=== PATIENT | female | born 1945 | race Caucasian/White ===

== ENCOUNTER 2020-01-26 10:45 | Outpatient (CLI) | payer MEDICARE, OTHER, SELFPAY ==
--- NOTE | ~2020-01-26 | US_ITS ---
EXAMINATION: US thyroid EXAM DATE: 01/26/2020 12:28 INDICATION: Hyperthyroidism. TECHNIQUE: Multiple grayscale and Doppler images of the thyroid were obtained (by a technologist who performed the scan) and subsequently reviewed. Individual nodules and recommendations may be reporte d in accordance with TI-RADS system as designated by the 2017 ACR White Paper TI-RADS committee. Comp arison is made to prior examination from 10/04/2016, 06/17/2012. FINDINGS: Multinodular goiter, with the right thyroid lobe measuring 5.4 x 2.0 x 1.6 cm, the left measuring 3.3 x 1.1 x 1.2 cm. The 2 largest nodules are in the right thyroid lobe. These both have spongiform masoud earance with echogenic foci along the deep sides of innumerable small cystic spaces, characteristic o f colloid cysts, TI RADS category TR 1. They measure 1.4 x 1.7 x 0.9 cm and 2.1 x 1.1 x 1.7 cm. These dimensions are not significantly changed compared to 2016 or 2011. IMPRESSION: Multinodular goiter unchanged. Reviewed, dictated and finalized at location A.
== END 2020-01-26 10:46 | disposition home or self-care (01) ==
LOC: CHSIMG 10:51
PROVIDERS: PCP Internal Medicine; Visit Provider Internal Medicine
DX: E05.90 Thyrotoxicosis, unspecified without thyrotoxic crisis or storm (principal)
CPT/HCPCS: 76536

== ENCOUNTER 2020-12-28 09:08 | Outpatient (CLI) | payer MEDICARE, OTHER, SELFPAY ==
--- NOTE | ~2020-12-28 | XR_ITS ---
EXAMINATION: XR lumbar spine 2-3V DATE: 12/28/2020 09:35 INDICATION: Low back pain. TECHNIQUE: 3 views of lumbar spine were obtained. COMPARISON: None. FINDINGS: There is a transitional segment at lumbosacral junction that is designated S1. There is 3 m m anterolisthesis of L4 on L5. Vertebral body heights are normal. There are changes of posterior fusi on procedure at L4-L5 with pedicle screws. There is mildly decreased disc height at L1-L2, L2-L3, L3- L4, and L4-L5 and severely decreased disc height at L5-S1 with endplate remodeling. There is multilev el severe facet joint osteoarthritis. IMPRESSION: 1. Severe lumbar spondylosis. 2. Posterior fusion procedure at L4-L5. Reviewed, dictated and finalized at location B.
[2020-12-28 09:25] LABS: Basophils Absolute Auto 0.04 K/mm3 (0.00-0.10); Basophils Percent Auto 0.5 % (0.0-1.0); Eosinophils Percent Auto 1.2 % (1.0-6.0); Hematocrit 41.5 % (35.0-42.0); Hemoglobin 14.4 g/dL (11.7-13.8); Immature Granulocyte Absolute 0.03 K/mm3 (0.00-0.00); Immature Granulocyte Percent A 0.4 % (0.0-0.0); Lymphocytes Absolute Auto 2.31 K/mm3 (1.10-4.50); Lymphocytes Percent Auto 27.8 % (18.0-42.0); Mean Corpuscular HGB Conc 34.7 g/dL (32.0-36.0); Mean Corpuscular Hemoglobin 31.3 pg (27.0-31.0); Mean Corpuscular Volume 90.2 fL (78.0-102.0); Mean Platelet Volume 9.2 fl (9.2-11.8); Monocytes Absolute Auto 0.56 K/mm3 (0.10-0.90); Monocytes Percent Auto 6.7 % (2.0-11.0); Neutrophils Absolute Auto 5.3 K/mm3 (1.7-7.2); Neutrophils Percent Auto 63.4 % (50.0-70.0); Platelet Count Result 346 K/mm3 (150-420); Red Cell Distribution Width 13.5 % (11.6-14.4); White Blood Count 8.3 K/mm3 (4.8-10.8)
[2020-12-28 09:26] LABS: Appearance Urine Clear (Clear); Bilirubin Urine Negative (Negative); Color Urine Yellow (Yellow); Glucose Urine UA Negative (Negative); Ketones Urine Negative (Negative); Leukocyte Esterase Ur 1+ (Negative); Nitrate Urine Negative (Negative); Protein Urine Negative (Negative); Specific Grav Ur <= 1.005 (1.010-1.020); Urobilinogen Urine 0.2 mg/dL (0.2-1.0)
[2020-12-28 09:30] LABS: Add Urine Microscopic? YES; Bacteria Urine Trace /hpf; Blood Urine Trace-Intact (Negative); RBC Urine None seen /hpf (0-2); Squamous Epithelial Cell Urine Few /hpf (Few); WBC Urine 0-3 /hpf (0-3)
[2020-12-28 10:35] LABS: Alanine Aminotransferase 28 U/L (14-59); Albumin Level 4.1 g/dL (3.4-5.0); Alkaline Phosphatase 109 U/L (46-116); Anion Gap 10 mmol/L (8-16); Aspartate Amino Transferase 17 U/L (15-37); Bilirubin,Total 1.4 mg/dL (0.00-1.00); Blood Urea Nitrogen 15 mg/dL (7-18); Calcium 9.1 mg/dL (8.5-10.1); Carbon Dioxide 28 mmol/L (21-32); Chloride 101 mmol/L (98-108); Estimated Glomerular Filt Rate > 60; Free T3 2.48 pg/mL (2.18-3.98); Free T4 Free Thyroxine 0.76 ng/dL (0.76-1.46); Glucose 99 mg/dL (70-99); Magnesium 2.3 mg/dL (1.8-2.4); Osmolality Calculated 288 mOsm/kg (285-295); Phosphorus 3.4 mg/dL (2.6-4.7); Sodium 139 mmol/L (136-145); Total Protein 7.7 g/dL (6.4-8.2)
[2020-12-28 11:16] LABS: CRP < 0.5 mg/dL (0.0-0.9)
== END 2020-12-28 09:09 | disposition home or self-care (01) ==
LOC: CHSLAB 09:12
PROVIDERS: PCP Internal Medicine; Visit Provider Internal Medicine
DX: R53.83 Other fatigue (principal); R10.9 Unspecified abdominal pain; M54.9 Dorsalgia, unspecified
CPT/HCPCS: 36415; 72100; 80053; 81001; 83735; 84100; 84439; 84443; 84481; 85025; 86140

== ENCOUNTER 2020-12-29 10:20 | Outpatient (CLI) | payer MEDICARE, OTHER, SELFPAY ==
--- NOTE | ~2020-12-29 | CT_ITS ---
EXAMINATION: CT abdomen pelvis wo con DATE: 12/29/2020 10:47 INDICATION: Hematuria. Left flank pain. Left upper quadrant pain. Hematuria. TECHNIQUE: Computed tomography (CT) of the abdomen and pelvis was performed without intravenous contr ast. Automated exposure control and iterative reconstruction technique were employed. Exam dose: 197 .36 mGy-cm total exam DLP. COMPARISON: 05/02/2011 CT abdomen pelvis examination is not available for comparison FINDINGS: Lower lobe calcified pulmonary edema. Minimal atelectasis at the lung bases. Normal heart size. No pericardial or pleural effusion. 1.6 cm lateral segment left hepatic cyst. Approximately 5 cm upper pole left renal cyst. 3.6 cm upper pole left renal cyst. Otherwise the liver, spleen, pancreas, and adrenal glands and kidneys are unremarkable. There are multiple gallstones. No gallbladder distention, gallbladder wall thickening or pericholecys tic fluid or fat stranding. No bile duct or pancreatic duct dilatation. Normal caliber of the abdominal aorta. No intraperitoneal or retroperitoneal or pelvic mass lesion or adenopathy or ascites. Status post hysterectomy. The urinary bladder is unremarkable. No bowel obstruction, bowel wall thickening, pneumatosis or intraperitoneal free air. Status post posterior spinal fusion at L4-5, grade 1 anterolisthesis at this level. Severe degenerative disease at L5-S1. IMPRESSION: 1.6 cm lateral segment left hepatic cyst Bilateral renal cysts Cholelithiasis Status post hysterectomy Reviewed, dictated and finalized at Location A. Reviewed, dictated and finalized at location A.
== END 2020-12-29 10:21 | disposition home or self-care (01) ==
LOC: CHSIMG 10:22
PROVIDERS: PCP Internal Medicine; Visit Provider Internal Medicine
DX: R31.9 Hematuria, unspecified (principal); R10.9 Unspecified abdominal pain
CPT/HCPCS: 74176

== ENCOUNTER 2022-04-10 18:41 | Emergency (ER) | payer MEDICARE, OTHER, SELFPAY ==
[2022-04-10 18:50] VITALS: BP 150/70; PULSE 79; RESP 16; TEMP 36.6; O2SAT 96
--- NOTE | 2022-04-10 18:53 | ED.NECK ---
HPI - Neck Pain/Injury General Chief Complaint: Back Pain/Injury Stated Complaint: neck and shoulder pain right side Time Seen by Provider: 04/10/22 18:43 Source: patient and RN notes reviewed Mode of arrival: ambulatory Limitations: no limitations History of Present Illness complaint: neck pain Onset (ago): hour(s) (10) Place: home Radiation: right lateral Severity: moderate Quality: dull and aching Duration: constant Relieving factors: none Exacerbating factors: movement of neck Context: other ( Increased use of right shoulder and neck with cleaning duties) Associated symptoms: none Treatments prior to arrival: acetaminophen Related Data Home Medications Medication Instructions Recorded Confirmed hydrochlorothiazide 25 mg tablet 25 mg PO DAILY 04/10/22 04/10/22 irbesartan 300 mg tablet 300 mg PO QHS 04/10/22 04/10/22 metoprolol succinate 25 mg 25 mg PO DAILY 04/10/22 04/10/22 tablet,extended release 24 hr montelukast 10 mg tablet 10 mg PO DAILY 04/10/22 04/10/22 rosuvastatin 5 mg tablet 5 mg PO DAILY 04/10/22 04/10/22 Allergies Allergy/AdvReac Type Severity Reaction Status Date / Time Sulfa (Sulfonamide Allergy Hives Verified 04/10/22 18:59 Antibiotics) Review of Systems Review of Systems: All systems reviewed & are unremarkable except as noted in HPI and below PMFSH Past Medical History Medical History (Updated 04/10/22 @ 19:10 by Low Mnaning MD) Hyperlipidemia Hypertension Seasonal allergies Surgical History Surgical History (Updated 04/10/22 @ 19:07 by Lwo Manning MD) H/O hysterectomy for benign disease H/O knee surgery bilateral Previous back surgery Exam Const: General: healthy appearing, no acute distress and alert Nutritional Appearance: well nourished Orientation/consciousness: patient oriented x3 Limitations: no limitations HENMT: Head: normal to inspection Ears: external ears normal Eyes: Conjunctivae: conjunctivae normal Pupils: Equal, round and reactive pupils present EOM: EOMs intact bilaterally Neck: Neck: normal visual inspection and no lymphadenopathy Resp: Effort & Inspection: normal respiratory effort Auscultation: clear to auscultation bilaterally Cardio: Rate: regular rate Rhythm: regular rhythm GI: GI Palp: Yes Soft to palpation and No Tenderness to palpation present (GI) Auscultation: normal bowel sounds Back/Spine/Pelvis: Cervical Spine: cervical muscular tenderness ( on the right lateral neck down to the trapezius), pain with cervical ROM, cervical spasm ( moderate to severe on the right), No Cervical spine tenderness and cervical ROM abnormal ( decreased lateral extension in both reactions decreased rotation both) Thoracic/Lumbar Spine: thoraco-lumbar ROM normal Skin: General skin exam: normal color Rashes: no rashes Neuro: General: patient oriented x3, moves all extremities and CN's II-XI intact bilaterally Speech: normal speech Gait exam (Neuro): Normal gait present Extrem: General: normal to inspection and no clubbing, cyanosis or edema Psych: Mental Status: mental status grossly normal Affect: normal affect Attitude: cooperative Discharge Plan Discharge Clinical Impression: Neck muscle strain Qualifiers: Encounter type: initial encounter Qualified Code(s): S16.1XXA - Strain of muscle, fascia and tendon at neck level, initial encounter Patient Disposition: Home, Self-Care Condition: Stable Instructions: Cervical Strain (ED) Additional Instructions: can use heat as needed. Follow-up with your primary care physician any worsening symptoms. Prescriptions: New nabumetone 750 mg tablet 750 mg PO BID PRN (Reason: pain) Qty: 20 0RF cyclobenzaprine 10 mg tablet 10 mg PO TID PRN (Reason: muscle spasm) Qty: 20 0RF No Action montelukast 10 mg tablet 10 mg PO DAILY hydrochlorothiazide 25 mg tablet 25 mg PO DAILY metoprolol succinate 25 mg tablet extended release 24 hr 25 mg PO
[2022-04-10] MEDS: KETOROLAC 30 MG/ML VIAL (*BKC) IM (19:15)
[2022-04-10] MEDS: ORPHENADRINE CITRATE 30 MG/ML 2 ML VIAL 60 MG IM (19:15)
[2022-04-10 19:23] VITALS: BP 136/65; PULSE 71; RESP 16; O2SAT 98
== END 2022-04-10 19:29 | disposition home or self-care (01) ==
PROVIDERS: Emergency Provider Emergency Medicine; PCP Internal Medicine
DX: S16.1XXA Strain of muscle, fascia and tendon at neck level, initial encounter (principal); E78.5 Hyperlipidemia, unspecified; I10 Essential (primary) hypertension
CPT/HCPCS: 96372; 99284; J1885; J2360

== ENCOUNTER 2023-09-25 09:22 | Outpatient (CLI) | payer MEDICARE, SELFPAY ==
--- NOTE | ~2023-09-25 | XR_ITS ---
EXAMINATION: XR shoulder RT min 2V DATE: 09/25/2023 09:51 INDICATION: Right shoulder pain. TECHNIQUE: 4 views of right shoulder were obtained. COMPARISON: Right shoulder radiograph 01/22/2014 FINDINGS: Bone alignment is normal. No fracture. There is moderate osteoarthritis of glenohumeral nikolai nt and mild osteoarthritis of acromioclavicular joint. There are surgical clips in right neck. IMPRESSION: 1. Polyarticular osteoarthritis Reviewed, dictated and finalized at location A. [facility] [employer]TERS DISPATCHER
== END 2023-09-25 09:23 | disposition home or self-care (01) ==
LOC: CHSIMG 09:26
PROVIDERS: PCP Internal Medicine; Visit Provider Internal Medicine
DX: M19.011 Primary osteoarthritis, right shoulder (principal); M25.511 Pain in right shoulder
CPT/HCPCS: 73030

== ENCOUNTER 2024-01-15 14:46 | Outpatient (CLI) | payer MEDICARE, SELFPAY ==
--- NOTE | ~2024-01-15 | XR_ITS ---
EXAMINATION: XR chest 2V 01/15/2024 15:24 INDICATION: Chest pain PROCEDURE: 2 view chest COMPARISON: No prior studies for comparison. FINDINGS: The lungs are clear. The cardiomediastinal silhouette is within normal limits. There are no pleural effusions. There is no pneumothorax suspected. IMPRESSION: 1: NO ACUTE CARDIOPULMONARY DISEASE. Reviewed, dictated and finalized at location B.
[2024-01-15 15:06] LABS: Basophils Absolute Auto 0.04 K/mm3 (0.00-0.10); Basophils Percent Auto 0.5 % (0.0-1.0); Eosinophils Absolute Auto 0.09 K/mm3 (0.02-0.50); Eosinophils Percent Auto 1.1 % (1.0-6.0); Hematocrit 41.1 % (35.0-42.0); Hemoglobin 14.3 g/dL (11.7-13.8); Immature Granulocyte Absolute 0.02 K/mm3 (0.00-0.00); Immature Granulocyte Percent A 0.2 % (0.0-0.0); Lymphocytes Absolute Auto 2.76 K/mm3 (1.10-4.50); Lymphocytes Percent Auto 33.9 % (18.0-42.0); Mean Corpuscular HGB Conc 34.8 g/dL (32-36); Mean Corpuscular Hemoglobin 30.8 pg (27.0-31.0); Mean Corpuscular Volume 88.6 fL (78.0-102.0); Mean Platelet Volume 9.1 fl (9.2-11.8); Monocytes Absolute Auto 0.64 K/mm3 (0.10-0.90); Monocytes Percent Auto 7.9 % (2.0-11.0); Neutrophils Absolute Auto 4.59 K/mm3 (1.70-7.20); Neutrophils Percent Auto 56.4 % (50.0-70.0); Platelet Count Result 386 K/mm3 (150-420); Red Blood Count 4.64 M/mm3 (4.20-5.40); Red Cell Distribution Width 13.2 % (11.6-14.4); White Blood Count 8.1 K/mm3 (4.8-10.8)
--- NOTE | 2024-01-15 15:07 | ECG_ITS ---
SEE SCANNED COPY FOR CONFIRMED REPORT MTDD
[2024-01-15 15:20] LABS: Appearance Urine Clear (Clear); Bilirubin Urine Negative (Negative); Blood Urine Trace-intact (Negative); Color Urine Light Yellow (Yellow); Glucose Urine UA Negative (Negative); Ketones Urine Trace (Negative); Leukocyte Esterase Ur 2+ (Negative); Nitrate Urine Negative (Negative); Protein Urine Negative (Negative)
[2024-01-15 15:25] LABS: Add Urine Microscopic? YES; Bacteria Urine 2+ /hpf; RBC Urine 0-2 /hpf (0-2); Squamous Epithelial Cell Urine Few /hpf (Few)
[2024-01-15 16:18] LABS: Alanine Aminotransferase 25 U/L (14-59); Albumin Level 3.9 g/dL (3.4-5.0); Alkaline Phosphatase 80 U/L (46-116); Anion Gap 8 mmol/L (4-12); Aspartate Amino Transferase 18 U/L (15-37); Bilirubin,Total 1.4 mg/dL (0.00-1.00); Blood Urea Nitrogen 20 mg/dL (7-18); CRP < 0.5 mg/dL (0.0-0.9); Calcium 9.2 mg/dL (8.5-10.1); Carbon Dioxide 32 mmol/L (21-32); Chloride 103 mmol/L (98-108); Cholesterol 192 mg/dL (0-200); Estimated Glomerular Filt Rate 45; Ferritin 388 ng/mL (8-252); Glucose 92 mg/dL (70-99); HDL Direct 51 mg/dL (40-60); LDL Cholesterol Calculated 107 mg/dL (<130); Osmolality Calculated 298 mOsm/kg (285-295); Potassium 3.8 mmol/L (3.5-5.1); Sodium 143 mmol/L (136-145); Thyroid Stimulating Hormone 0.78 uIU/mL (0.36-3.74); Total Protein 7.4 g/dL (6.4-8.2); Triglycerides 168 mg/dL (0-150); Vitamin B12 306 pg/mL (193-986)
[2024-01-16 16:09] LABS: Parathyroid Intact 36 pg/mL (16-77)
[2024-01-17 01:38] LABS: Vitamin D 25 Hydroxy 14 ng/mL (30-100)
[2024-01-19 09:53] LABS: Vitamin D 1,25 (OH)2 Total 23 pg/mL (18-72); Vitamin D2 1,25 (OH)2 <8 pg/mL; Vitamin D3 1,25 (OH)2 23 pg/mL
[2024-01-19 13:08] LABS: Methylmalonic Acid 268 nmol/L (87-318)
== END 2024-01-15 14:47 | disposition home or self-care (01) ==
PROVIDERS: PCP Internal Medicine; Visit Provider Internal Medicine
DX: R07.9 Chest pain, unspecified (principal); R53.83 Other fatigue; M13.0 Polyarthritis, unspecified; G62.9 Polyneuropathy, unspecified; E55.9 Vitamin D deficiency, unspecified
CPT/HCPCS: 36415; 71046; 80053; 80061; 81001; 82306; 82607; 82652; 82728; 83921; 83970; 84443; 85025; 86140; 93005

== ENCOUNTER 2024-01-21 07:42 | Outpatient (CLI) | payer MEDICARE, SELFPAY ==
--- NOTE | ~2024-01-21 | US_ITS ---
EXAMINATION: US right upper quadrant DATE: 01/21/2024 08:03 INDICATION: Epigastric abdominal pain. Chest pain. TECHNIQUE: Multiple grayscale and Doppler ultrasound images of the abdomen were obtained. COMPARISON: CT abdomen and pelvis 12/29/2020 FINDINGS: The visualized portions of the head of the pancreas are normal. There is a 1.3 cm cyst in t he liver. There is normal flow in main portal vein. The gallbladder is normal in size and contains ga llstones. No gallbladder wall thickening. There is no sonographic Avalos's sign. The common duct is n ormal and measures 4 mm. There is a 4.9 cm cyst in right kidney. IMPRESSION: 1. Cholelithiasis. No evidence of acute cholecystitis. Reviewed, dictated and finalized at location A.
== END 2024-01-21 07:43 | disposition home or self-care (01) ==
LOC: CHSIMG 07:43
PROVIDERS: PCP Internal Medicine; Visit Provider Internal Medicine
DX: R10.13 Epigastric pain (principal); R07.9 Chest pain, unspecified; K80.20 Calculus of gallbladder without cholecystitis without obstruction
CPT/HCPCS: 76705

== ENCOUNTER 2024-07-25 08:40 | Outpatient (CLI) | payer MEDICARE, SELFPAY ==
--- NOTE | ~2024-07-25 | CT_ITS ---
EXAMINATION: CT sinus wo con DATE: 07/25/2024 08:59 INDICATION: Chronic rhinosinusitis for 6 months TECHNIQUE: Computed tomography (CT) of the paranasal sinuses was performed without contrast. Iterativ e reconstruction technique was employed. Exam dose: 236.84 mGy-cm total exam DLP. COMPARISON: None FINDINGS: There is rightward deviation the nasal septum. The nasal turbinates are mildly prominent in size, left greater than right. The ostiomeatal units are patent. There is partial opacification of an anterior right ethmoid air cell. The paranasal sinuses otherwise are normally developed and aerated. The mastoid air cells are well-developed and aerated. Minimal and inner ear apparatus are unremarkable bilaterally. IMPRESSION: Rightward deviation of nasal septum Partial opacification of an anterior right ethmoid air cells are otherwise normal development and aer ation of the paranasal sinuses and mastoid air cells Bilateral patent ostiomeatal units Reviewed, dictated and finalized at Location A. Reviewed, dictated and finalized at location A. ATTENDANT IMPRESSION: Rightward deviation of nasal septum Partial opacification of an anterior right ethmoid air cells are otherwise norm al development and aeration of the paranasal sinuses and mastoid air cells Bilateral patent ostiomeatal units
== END 2024-07-25 08:41 | disposition home or self-care (01) ==
LOC: CHSIMG 08:42
PROVIDERS: PCP Internal Medicine; Visit Provider Internal Medicine
DX: J32.9 Chronic sinusitis, unspecified (principal); J34.2 Deviated nasal septum
CPT/HCPCS: 70486

== ENCOUNTER 2025-06-24 13:40 | Outpatient (CLI) | payer MEDICARE, SELFPAY ==
--- NOTE | ~2025-06-24 | XR_ITS ---
XR lumbar spine 2-3V Indication: thoracic radiculopathy Comparison: None Findings: Posterior fixation of L4 and L5, no fracture is identified. Grade 1 anterolisthesis of L4 on L5. Moderate to severe loss of disc height throughout. Soft tissues unremarkable Impression: No acute abnormality. Reviewed, dictated and finalized at location P. EXAMINER Impression: No acute abnormality.
--- NOTE | ~2025-06-24 | XR_ITS ---
XR thoracic spine 3V Indication: thoracic radiculopathy Comparison: None Findings: Moderate loss of vertebral height throughout, no fracture or subluxation. Moderate osteopenia. Moderate to severe loss of disc height throughout. Soft tissues unremarkable Impression: No acute abnormality. Reviewed, dictated and finalized at location P. INSPECTOR Impression: No acute abnormality.
[2025-06-24 14:16] LABS: Hematocrit 41.0 % (35.0-42.0); Hemoglobin 14.2 g/dL (11.7-13.8); Mean Corpuscular HGB Conc 34.6 g/dL (32-36); Mean Corpuscular Hemoglobin 30.4 pg (27.0-31.0); Mean Corpuscular Volume 87.8 fL (78.0-102.0); Platelet Count Result 371 K/mm3 (150-420); Red Blood Count 4.67 M/mm3 (4.20-5.40); White Blood Count 7.5 K/mm3 (4.8-10.8)
[2025-06-24 14:20] LABS: Add Urine Microscopic? YES; Appearance Urine Clear (Clear); Glucose Urine UA Negative (Negative); Leukocyte Esterase Ur 1+ (Negative); Nitrate Urine Negative (Negative); Specific Grav Ur 1.010 (1.010-1.020)
[2025-06-24 14:49] LABS: Alanine Aminotransferase 21 U/L (6-35); Albumin Level 4.5 g/dL (3.5-5.1); Alkaline Phosphatase 88 U/L (38-126); Anion Gap 10 mmol/L (4-12); Aspartate Amino Transferase 25 U/L (14-36); Bilirubin,Total 2.1 mg/dL (0.2-1.3); Blood Urea Nitrogen 16 mg/dL (7-17); CRP < 0.5 mg/dL (<1.0); Calcium 9.5 mg/dL (8.4-10.2); Carbon Dioxide 29 mmol/L (22-30); Chloride 102 mmol/L (98-107); Cholesterol 262 mg/dL (0-200); Estimated Glomerular Filt Rate 56; Glucose 119 mg/dL (65-110); HDL Direct 54 mg/dL; Osmolality Calculated 294 mOsm/kg (285-295); Potassium 3.3 mmol/L (3.4-5.0); Sodium 141 mmol/L (137-145); Total Protein 7.4 g/dL (6.3-8.2); Triglycerides 273 mg/dL (<150); Uric Acid 6.3 mg/dL (2.5-7.5)
--- OUTSIDE RECORDS SUMMARY | 2025-06-25 13:12 | XMS_ITS | Encounter Summary ---
Author Organization [facility] Address [address] [place] [address] Care Team Providers Care Mounter Sousaphones Name Role Phone Corky Tyson MD Unavailable [phone] Art Georges MD Primary Care Provider [phone] Encounter Details Date Type Department Care Team (Late st Contact Info) Description 09/20/2015 Therapy Visit [facility] [id number] [facility] [address] [place] [id number] [place] [id number] [address] Social History Tobacco Use Types Packs/Day Years Used Date Smoking Tobacco: Former Alcohol Use Standard Drinks/Week Comments Yes 0 (1 standard drink = 0.6 oz pur e alcohol) on occassion Comments No Sex and Gender Information Value Date Recorded Sex Assigned at Not on file Legal Sex Female 11:42 AM CDT Gender Identity Not on file Sexual Orientation Not on file documented as of this encounter Functional Status * Is person deaf or have serious hearing difficulty? Answer Date of Assessment Author No 09/04/2015 12:13 PM Baudilio Macario RN * Is person blind or have serious difficulty seeing? Answer Date of Assessment Author No 09/04/2015 12:13 PM Baudilio Macario RN * Does person have serious difficulty walking/climbing stairs? Answer Date of Assessment Author No 09/04/2015 12:13 PM Baudilio Macario RN * Does person have difficulty dressing/bathing? Answer Date of Assessment Author No 09/04/2015 12:13 PM Baudilio Macario RN * Does person have difficulty doing errands alone? Answer Date of Assessment Author No 09/04/2015 12:13 PM Baudilio Macario RN documented as of this encounter Mental Status * Does person have difficulty concentrating/remembering/making decisions? Answer Entry Date Author No 09/04/2015 12:13 PM Baudilio Macario RN documented in this encounter Plan of Treatment Not on file documented as of this encounter Visit Diagnoses Not on filedocumented in this encounter Care Teams Mounter Sousaphones Relationship Specialty Start Date End Date Art Georges MD [address] [place], [place] [id number] PCP - General Internal Medicine 06/30/14 [place] [address] [facility] [address] [place] [id number] Orthopedic Surgery 06/30/14 documented as of this encounter
--- OUTSIDE RECORDS SUMMARY | 2025-06-25 13:12 | XMS_ITS | Clinical Summary ---
Author Organization [facility] Address [address] [place] [address] Care Team Providers Care Aligning Inspector Name Role Phone Corky Tyson MD Unavailable [phone] Art Georges MD Primary Care Provider [phone] Source Comments [facility],non-owned Affiliates and Associated Physician Practices is amultiple site organization consisting of ambulatory clinics and hospital sitesin [place], [place], [place] and [place]. This disclosure is being madepursuant to the Care Everywhere program and may not contain all information available regarding this patient. Last updated 18.[facility] Allergies Active Allergy Reactions Criticality Noted Date Comments Nickel Rash Low 03/17/2015 Sulfa Drugs 06/30/2014 SWELLING OF MOUTH AND FACE Medications * Be aware that medications may not be up to date on this document. Alwaysverify current medications with the patient. losartan (COZAAR) 100 MG tablet Take 100 mg by mouth once daily Active montelukast (SINGULAIR) 10 MG tablet Take 10 mg by mouth at bedtime Active ROPINirole (REQUIP) 0.5 MG tablet Take 0.5 mg by mouth at bedtime Active vitamin D, ergocalciferol, (DRISDOL) 45311 UNITS capsule Take 50,000 Units by mouth every 7 days TAKES ON THURSDAYS Active atenolol (TENORMIN) 25 MG tablet Take 25 Tabs by mouth at bedtime 5 Active hydrocodone-jessica taminophen (NORCO) 10-325 MG tablet Take 0.5-1 Tabs by mouth every 6 hours as needed for Pain 90 Tab 0 6 Active amoxicillin (AMOXIL) 500 MG capsule Take 4 Caps by mouth pre-Procedure once for 1 dose Take 4 pills 1hr prior to dental appointment 12 Cap 1 6 Active Active Problems Problem Noted Date Diagnosed Date Knee joint replacement by other means 04/06/2015 DJD (degenerative joint disease) 03/18/2015 Social History Tobacco Use Types Packs/Day Years Used Date Smoking Tobacco: Former Alcohol Use Standard Drinks/Week Comments Yes 0 (1 standard drink = 0.6 oz pur e alcohol) on occassion Comments No Sex and Gender Information Value Date Recorded Sex Assigned at Not on file Legal Sex Female 11:42 AM CDT Gender Identity Not on file Sexual Orientation Not on file Last Filed Vital Signs Vital Sign Reading Time Taken Comments Blood Pressure 145/64 09/04/2015 8:25 AM DIGESTER HAND Pulse 82 09/04/2015 8:25 AM DIGESTER HAND Temperature 36.3 C (97.4 F) 09/04/2015 8:25 AM DIGESTER HAND Respiratory Rate 20 09/04/2015 8:25 AM DIGESTER HAND Oxygen Saturation 95% 09/04/2015 8:25 AM DIGESTER HAND Inhaled Oxygen Concentration - - Weight 76.7 kg (169 lb) 09/01/2015 8:44 AM DIGESTER HAND Height 160 cm (5' 3) 09/01/2015 8:44 AM DIGESTER HAND Body Mass Index 29.94 09/01/2015 8:44 AM DIGESTER HAND Plan of Treatment Health Maintenance Due Date Last Done Comments BONE DENSITY TESTING 1945 DTAP/TDAP/TD VACCINES (1 - Tdap) 1965 PNEUMOCOCCAL VACCINE 50+ (1 of 1 - PCV) 1996 ZOSTER VACCINE (1 of 2) 1996 Respiratory Syncytial Virus (RSV) Vaccine Pt: or over 60 yrs (1 - 1-dose 75+ series) 2021 DEPRESSION SCREENING 08/20/2024 COVID-19 VACCINE (1 - 2023-2 5 season) 2025 INFLUENZA VACCINE (#1) 2025 HEPATITIS B VACCINE Aged Out No longe r eligible based on patient's age to complete this topic HIB VACCINE Aged Out No longer eligi ble based on patient's age to complete this topic HPV VACCINE Aged Out No longer eligi ble based on patient's age to complete this topic MENINGOCOCCAL (Group B) VACC INE SHARED DECISION-MAKING Aged Out No longer eligibl e based on patient's age to complete this topic MENINGOCOCCAL GROUPS A/C/Y/W VACCINE Aged Out No longer eligible b ased on patient's age to complete this topic Medical Devices Implanted Type Area Rat Trapper Device Identifier Shelf Expiration Date Model / Serial / Lot Alberto Bone [place] Hv Implanted:Qty: 1 on 03/17/2015 by Corky Tyson MD at [facility] Right: Knee [employer] 10/17/2016 [id number] / / [id number] Ty Tibial I Beam Fix Bar 71mm Implanted:Qty: 1 on 03/17/2015 by Corky Tyson MD at [facility] Right: Knee [employer] 05/19/2024 [id number] / / [id number] Butn Pat Arcom Wire Polyeth Xsm 28 X 8 Implanted:Qty: 1 on 03/17/2015 by Corky Tyson MD at [facility] Right: Knee [employer] 12/19/2019 [id number] / / [id number] Ins Kn [place]urd Fem Cocr R-Intlok 65.0mm Implanted:Qty: 1 on 03/17/2015 by Corky Tyson MD at [facility] Right: Knee [employer] 02/12/2025 [id number] / / [id number] Brdg Tib Omaira Stbl 12mm X 71mm Implanted:Qty: 1 on 03/17/2015 by Corky Tyson MD at [facility] Right: Knee [employer] 12/04/2019 [id number] / / [id number] Ty Tibial Prim Intlok 71mm Implanted:Qty: 1 on 09/01/2015 by Corky Tyson MD at [facility] Left: Knee [employer] 06/09/2025 [id number] / / [id number] Brdg Tib Omaira Stbl Implanted:Qty: 1 on 09/01/2015 by Corky Tyson MD at [facility] Left: Knee [employer] 06/01/2020 [id number] / / [id number] Alberto Bone [place] Hv Implanted:Qty: 1 on 09/01/2015 by Corky Tyson MD at [facility] Left: Knee [employer] 03/19/2017 [id number] / / [id number] Stem Fem Maxim I-Beam Prim 40mm Implanted:Qty: 1 on 09/01/2015 by Corky Tyson MD at [facility] Left: Knee [employer] 01/16/2019 [id number] / / [id number] 62.5mm Cr Femoral Titanium Component Implanted:Qty: 1 on 09/01/2015 by Corky Tyson MD at [facility] Left: Knee [employer] 04/18/2025 [id number] / / [id number] Ty Johnson Arcom Wire Polyeth Xsm 28 X 8 Implanted:Qty: 1 on 09/01/2015 by Corky Tyson MD at [facility] Left: Knee [employer] 06/09/2020 [id number] / / [id number] Insurance MEDICARE CITIZEN OF [place] [id number] Advance Directives * Full Code (Latest Code Status on File) Date Activated Date Inactivated Comments 09/01/2015 2:24 PM 09/04/2015 1:42 PM * Full Code Date Activated Date Inactivated Comments 03/17/2015 11:46 AM 03/20/2015 1:08 PM Care Teams Aligning Inspector Relationship Specialty Start Date End Date Art Georges MD [address] [place] [address] PCP - General Internal Medicine 06/30/14 [place] [id number] [address] Orthopedic Surgery 06/30/14
--- OUTSIDE RECORDS SUMMARY | 2025-06-25 13:12 | XMS_ITS | Clinical Summary ---
Author Organization [facility] Address [address] [place] [address] Care Team Providers Care Superintendent Pier Name Role Phone Unavailable Primary Care Provider Unavailabl e Social History Tobacco Use Types Packs/Day Years Used Date Smoking Tobacco: Never Assessed Comments Unknown Sex and Gender Information Value Date Recorded Sex Assigned at Not on file Legal Sex Female 10:56 PM CDT Gender Identity Not on file Sexual Orientation Not on file Plan of Treatment Health Maintenance Due Date Last Done Comments Hepatitis C 1963 DTaP, Tdap and Td Vaccines ( 1 - Tdap) 1965 Pneumococcal Vaccine: 50+ Ye ars (1 of 1 - PCV) 1996 Zoster Vaccines (1 of 2) 1996 Dexa Scan (General) 2011 RSV Immunization or 60+ Years (1 - 1-dose 75+ series) 2021 COVID-19 Vaccine ( - 2024-2 6 season) 2025 Influenza Adult (#1) 2025 Hepatitis A Vaccines Aged Out No long er eligible based on patient's age to complete this topic Meningococcal B Vaccine Aged Out No l onger eligible based on patient's age to complete this topic Meningococcal Vaccine Aged Out No ophelia meaghan eligible based on patient's age to complete this topic RSV Immunizations Under 20 Months Aged Out No longer eligible based on patient's age to complete this topic
--- OUTSIDE RECORDS SUMMARY | 2025-06-25 13:12 | XMS_ITS | Clinical Summary ---
[facility] Address [address] [place] [address] Care Team Providers Care Luggage Maker Name Role Phone Art Georges MD Primary Care Provider [phone] Allergies Active Allergy Reactions Criticality Noted Date Comments Sulfa (Sulfonamide Antibiotics) Swollen tongue High Medications rosuvastatin (CRESTOR) 5 mg tabletIndication s:hyperlipidemia Take 1 tablet (5 mg total) by mouth nightly Active metoprolol XL (TOPROL-XL) 25 mg 24 hr tabletIndication s:hypertension Take 1 tablet (25 mg total) by mouth nightly Active montelukast (SINGULAIR) 10 mg tabletIndication s:Seasonal Allergic Rhinitis Take 1 tablet (10 mg total) by mouth nightly Active irbesartan (AVAPRO) 300 mg tabletIndication s:hypertension Take 1 tablet (300 mg total) by mouth nightly Active hydroCHLOROthiaz vu (HYDRODIURIL) 25 mg tabletIndication s:hypertension Take 1 tablet (25 mg total) by mouth nightly Active ascorbic acid (VITAMIN C) 1,000 mg tablet Take 1,000 mg by mouth nightly Active vitamin B complex capsule Take 1 capsule by mouth nightly Active famotidine (PEPCID) 20 mg tabletIndication s:Heartburn Prevention Take 20 mg by mouth 2 (two) times a day Active acetaminophen (TYLENOL) 325 mg tablet Take 2 tablets (650 mg total) by mouth every 6 (six) hours as needed for pain Active oxyCODONE (ROXICODONE) 5 mg immediate release tabletIndication s:Pain Take 1 tablet (5 mg total) by mouth every 6 (six) hours as needed for pain (breakthrough pain) 5 tablet 1 Active Additional Information Patient not taking.Reported on 05/07/2025 docusate sodium (COLACE) 100 mg capsuleIndicatio ns:constipation Take 1 capsule (100 mg total) by mouth 2 (two) times a day 30 capsule 1 Active Additional Information Patient not taking.Reported on 05/07/2025 cholecalciferol, vitamin D3, (BABY VITAMIN D3 ORAL) Take by mouth Active levothyroxine (SYNTHROID) 75 mcg tabletIndication s:Hypothyroidism , unspecified type TAKE 1 TABLET BY MOUTH EVERY DAY 90 tablet 1 5 Active Active Problems Problem Noted Date Diagnosed Date Allergic rhinitis 01/07/2025 Deviated nasal septum 01/07/2025 Hypertrophy of nasal turbinates 01/07/2025 BARRY (obstructive sleep apnea) 01/07/2025 Intolerance of continuous po sitive airway pressure (CPAP) ventilation 01/07/2025 Personal history of colonic polyps 12/02/2021 Overview (12/02/2021): Added automatically from request for surgery [id number] Encounter for screening colonoscopy 12/02/2021 Overview (12/02/2021): Added automatically from request for surgery [id number] Multinodular goiter 04/27/2020 Assessment & Plan (04/27/2020 2:30 PM CDT): Thyroid US with multinodular goiter, largest nodules in R thyroid which measures 5.4 x 2.0 x 1.6 cm, L thyroid measures 3.3 x 1.1 x 1.2 cm; TIRADS TR1 (compared to previous imaging in 2011 and 2017, overall stable). TSH in 02/2020 0.01, but fT4 not checked, suspect subclinical hyperthyroidism. Differential for functional nodule(s) includes Graves disease, toxic multinodular goiter. - Re-check TSH, fT4 - Check thyroid stimulating immunoglobulin - Pending above results, will proceed with either thyroid scan vs biopsy Knee joint replacement by other means 04/06/2015 DJD (degenerative joint disease) 03/18/2015 Encounters Date Type Department Care Team Description 05/07/2025 9:00 AM CDT Office Visit [facility] Medicine Neuro Sleep [address] 6th [address] [place] [address] Catherine Solomon DNP BARRY (obstructive sleep apnea) (Primary Dx); Hypersomnia; Overweight (BMI 25.0-29.9); Chronic insomnia from Last 3 Months Surgical History Surgery Date Site/Laterality Comments HYSTERECTOMY 08/20/1992 - 08/19/1993 BACK SURGERY 08/20/2009 - 08/19/2010 REPLACEMENT TOTAL KNEE BILATERAL 08/20/2014 - 08/19/2015 Bilateral VAGINAL PROLAPSE REPAIR 08/20/2009 - 08/19/2010 COLONOSCOPY 12/18/2014 - 01/17/2015 COLONOSCOPY 12/29/2021 Medical History Medical History Date Comments Palpitation Arrhythmia Cancer (HCC) melanoma Hyperlipidemia Hypertension Sleep apnea PONV (postoperative nausea and vomiting) Colon polyp Thyroid disease Anxiety Family History Medical History Relation Name Comments Palpitations Father Prostate cancer Father Heart disease Mother Colon cancer Sister Anesthesia problems Neg Hx Relation Name Status Comments Father Mother Sister Social History Tobacco Use Types Packs/Day Years Used Date Smoking Tobacco: Former Cigarettes Smokeless Tobacco: Never Alcohol Use Standard Drinks/Week Comments Yes 0 (1 standard drink = 0.6 oz pur e alcohol) AUDIT-C Answer Date Recorded Q1: How often do you have a drink containing alcohol? Never 01/06/2025 Q2: How many drinks containi ng alcohol do you have on a typical day when you are drinking? Patient does not drink Q3: How often do you have si x or more drinks on one occasion? Never 01/06/2025 Comments Unknown Sex and Gender Information Value Date Recorded Sex Assigned at Not on file Legal Sex Female 5:21 PM TUBE CLEANER Gender Identity Not on file Sexual Orientation Not on file Last Filed Vital Signs Vital Sign Reading Time Taken Comments Blood Pressure 111/71 05/07/2025 9:17 AM CDT Pulse 84 05/07/2025 9:17 AM CDT Temperature 36.7 C (98.1 F) 05/07/2025 9:17 AM CDT Respiratory Rate 18 01/06/2025 4:08 PM CDT Oxygen Saturation 97% 05/07/2025 9:17 AM CDT Inhaled Oxygen Concentration - - Weight 76.9 kg (169 lb 8 oz) 05/07/2025 9:17 AM CDT Height 162.6 cm (5' 4) 05/07/2025 9:17 AM CDT Body Mass Index 29.09 05/07/2025 9:17 AM CDT Plan of Treatment Health Maintenance Due Date Last Done Comments Depression Screening 1945 Hepatitis C Screening 1945 Osteoporosis Screening-Bone Density Scan 1945 Hepatitis B Screening 1964 Well Visit 65+ 2011 Pneumococcal vaccine 65+ (2 of 2 - PCV20 or PCV21) 03/21/2017 03/21/2016 DTaP/Tdap/Td Vaccine (2 - Td or Tdap) 12/17/2021 12/18/2011 Fall Risk Assessment 12/29/2022 12/29/2021 Influenza Vaccine (#1) 2025 9, 08/15/2017, 06/01/2015, Additional history exists Zoster Vaccine Completed 10/15/2018, 02/2018, 07/19/2018 Colon Cancer Screening-CT Colonography Discontinued 12/29/2021, 12/25/2014, 12/24/2014, Additional history exists Colon Cancer Screening-Colonoscopy Discontinued 12/29/2021, 12/25/2014, 12/24/2014, Additional history exists Colon Cancer Screening-DNA Stool Discontinued 12/29/2021, 12/25/2014, 12/24/2014, Additional history exists Colon Cancer Screening-FIT Discontinued 12/29, 12/25/2014, 12/24/2014, Additional history exists Colon Cancer Screening-FOBT Discontinued 12/18, 12/25/2014, 12/24/2014, Additional history exists Colon Cancer Screening-Sigmoidoscopy Discontinued 12/29/2021, 12/25/2014, 12/24/2014, Additional history exists Colorectal Cancer Screening Discontinued Breast Cancer Screening-Mammogram Discontinued 09/25/2024, 10/18/2022, 09/02/2020, Additional history exists Procedures Procedure Name Priority Date/Time Associated Diagnosis Comments CPAP THERAPY Routine 05/06/2025 BARRY (obstructive sleep apnea) SCREENING MAMMOGRAM BILATERAL W TERENCE Schedule Routine, Read Routine (OP Routine) 09/25/2024 2:36 PM TUBE CLEANER Screening mammogram, encounter for COLONOSCOPY 12/29/2021 7:40 AM CDT from Last 3 Months or Most Recently Relevant to Health Maintenance Results * CPAP Machine with Heated Humidifier (05/06/2025) [facility] Edwin Garnett MD PhD DME ORDERABLES Fin al Result * Screening Mammogram Bilateral W Terence (09/25/2024 2:36 PM TUBE CLEANER) Anatomical Region Laterality Modality Breast Bilateral Mammography Narrative 09/26/2024 6:54 AM TUBE CLEANER Examination: Screening Mammogram Bilateral W Terence: 09/25/24 Prior Study Comparisons: Relevant prior studies available at the time of interpretation were reviewed. Findings: Bilateral There is no suspicious mass, calcification, or distortion in either breast. There are scattered areas of fibroglandular density. The patient will be notified of results by letter. Impression: BI-RADS ATLAS category (overall): 2 - Benign Routine Screening Mammogram in 1 Yr is recommended for bilateral Overall Assessment: 2 - Benign us Self Screening Mammogram IMG MAMMO PROCEDURES Fi nal Result * COLONOSCOPY (12/29/2021 7:40 AM CDT) Anatomical Region Laterality Modality Other Narrative Procedure Note Tariq Camacho MD - 12/29/2021 7:[address] [facility] Patient Name: Asif Rosas Procedure Date: 12/29/2021 7:40 AM Date of : 1945 Admit Type: Outpatient Age: 76 Gender: Female Attending MD: Tariq Camacho M.D. Room: [facility] ROOM 2 Note Status: Finalized Patient Profile: Refer to note in patient chart for documentation of history and physical. Procedure: Colonoscopy Indications: High risk colon cancer surveillance: Personalhistory of colonic polyps, Family history of colon cancerin a first-degree relative before age 60 years, Last colonoscopy: December 2014 Referring MD: Art Georges M.D. Providers: Tariq Camacho M.D. Impression: - Hemorrhoids found on perianal exam. - One 2 mm polyp in the descending colon, removedwith a jumbo cold forceps. Resected and retrieved. - One 5 mm polyp in the rectum, removed with a cold snare. Resected and retrieved. - Diverticulosis in the sigmoid colon. - The examination was otherwise normal. Recommendation: - Discharge patient to home. - Resume previous diet. - Continue present medications. - Await pathology results. - Repeat colonoscopy in 5 years for surveillance. - Return to primary care physician as previously scheduled. Medicines: Propofol per Anesthesia Complications: No immediate complications. Estimated Blood Loss: Estimated blood loss: none. Procedure: Pre-Anesthesia Assessment: - This assessment was completed [Time ofAssessment] prior to the administration of sedation. The benefits, risks and alternatives of theprocedure and sedation were discussed and informed consentwas obtained. All questions were answered. Please referto the signed informed consent document in the medical record. The bowel preparation used was Miralax via single dose instruction. The bowel preparation used was bisacodyl tablets via single dose instruction.The scope was passed under direct vision. TheColonoscope [id number] was introduced through the anus and advanced to the the cecum, identified by appendiceal orifice and ileocecal valve. The colonoscopy was performed without difficulty. The patient tolerated the procedure well. The qualityof the bowel preparation was good. The ileocecalvalve, appendiceal orifice, and rectum werephotographed. Findings: Hemorrhoids were found on perianal exam. A 2 mm polyp was found in the descending colon. The polyp wassessile. The polyp was removed with a jumbo cold forceps. Resection andretrieval were complete. Verification of patient identification for thespecimen was done by the physician and nurse using the patient's name andbirth date. Estimated blood loss was minimal. A 5 mm polyp was found in the rectum. The polyp was sessile. Thepolyp was removed with a cold snare. Resection and retrieval were complete. Verification of patient identification for the specimen was done bythe physician and nurse using the patient's name and date.Estimated blood loss was minimal. A few small-mouthed diverticula were found in the sigmoid colon. The exam was otherwise without abnormality. Electronically signed by Tariq Camacho M.D. Tariq Camacho M.D. 12/29/2021 8:42:05 AM Number of Addenda: 0 Note Initiated On: 12/29/2021 7:40 AM Procedure Code(s): --- Professional --- 20659, Colonoscopy, flexible; with removal of tumor(s), polyp(s), or other lesion(s) by snare technique 86462, 59, Colonoscopy, flexible; with biopsy, single or multiple Diagnosis Code(s): --- Professional --- K57.30, Diverticulosis of large intestine without perforation orabscess without bleeding Z80.0, Family history of malignant neoplasm of digestive organs D12.8, Benign neoplasm of rectum D12.4, Benign neoplasm of descending colon K64.9, Unspecified hemorrhoids Z86.010, Personal history of colonic polyps CPT copyright 2020 [employer]. All rights reserved. The codes documented in this report are preliminary and upon manager event reviewmay be revised to meet current compliance requirements. Recognized by the [employer] for promoting quality in endoscopy Tariq Camacho MD ENDOSCOPY PROCEDURES Final Re sult from Last 3 Months or Most Recently Relevant to Health Maintenance Insurance [facility] MEDICARE SUPPLEMENT INSURANCE MEDICARE [facility] MEDICARE ADVANTAGE [facility] MEDICARE ADVANTAGE Advance Directives For more information, please contact: [phone] * Full Code (Latest Code Status on File) Date Activated Date Inactivated Comments 12/29/2021 7:43 AM 12/29/2021 1:28 PM * Full Code Date Activated Date Inactivated Comments 09/28/2020 2:05 PM 09/28/2020 10:39 PM Care Teams Luggage Maker Relationship Specialty Start Date End Date Art Georges MD PCP - General 12/08/16
--- OUTSIDE RECORDS SUMMARY | 2025-06-25 13:12 | XMS_ITS | Encounter Summary ---
Author Organization [facility] Address [address] [place] [address] Care Team Providers Care Paste Mixer Name Role Phone Corky Tyson MD Unavailable [phone] Art Georges MD Primary Care Provider [phone] Encounter Details Date Type Department Care Team (Late st Contact Info) Description 04/05/2015 Therapy Visit [facility] [id number] [address] [place] [address] [address] Social History Tobacco Use Types Packs/Day Years Used Date Smoking Tobacco: Former Alcohol Use Standard Drinks/Week Comments Yes 0 (1 standard drink = 0.6 oz pur e alcohol) Comments No Sex and Gender Information Value Date Recorded Sex Assigned at Not on file Legal Sex Female 11:42 AM CDT Gender Identity Not on file Sexual Orientation Not on file documented as of this encounter Functional Status * Is person deaf or have serious hearing difficulty? Answer Date of Assessment Author No 03/20/2015 11:35 AM Baudilio Brice RN * Is person blind or have serious difficulty seeing? Answer Date of Assessment Author No 03/20/2015 11:35 AM Baudilio Brice RN * Does person have serious difficulty walking/climbing stairs? Answer Date of Assessment Author No 03/20/2015 11:35 AM Baudilio Brice RN * Does person have difficulty dressing/bathing? Answer Date of Assessment Author No 03/20/2015 11:35 AM Baudilio Brice RN * Does person have difficulty doing errands alone? Answer Date of Assessment Author No 03/20/2015 11:35 AM Baudilio Brice RN documented as of this encounter Mental Status * Does person have difficulty concentrating/remembering/making decisions? Answer Entry Date Author No 03/20/2015 11:35 AM Baudilio Brice RN documented in this encounter Plan of Treatment Not on file documented as of this encounter Visit Diagnoses Not on filedocumented in this encounter Care Teams Paste Mixer Relationship Specialty Start Date End Date Art Georges MD [address] [place] [address] PCP - General Internal Medicine 06/30/[address] [place] [address] [facility] [address] [address] Orthopedic Surgery 06/30/14 documented as of this encounter
[2025-06-25 14:08] LABS: Anti-CCP Ab, IgG/IgA 9 units (0-19)
[2025-06-26 12:08] LABS: ANA by IFA Rfx Titer/Pattern Negative (.)
== END 2025-06-24 13:41 | disposition home or self-care (01) ==
LOC: CHSLAB 13:46
PROVIDERS: PCP Internal Medicine; Visit Provider Internal Medicine
DX: I10 Essential (primary) hypertension (principal); E78.5 Hyperlipidemia, unspecified; M54.14 Radiculopathy, thoracic region; G62.9 Polyneuropathy, unspecified
CPT/HCPCS: 36415; 72072; 72100; 80053; 80061; 81001; 84550; 85027; 86037; 86038; 86140; 86200

== ENCOUNTER 2025-07-23 13:42 | Outpatient (CLI) | payer MEDICARE, SELFPAY ==
--- NOTE | ~2025-07-23 | DEXA_ITS ---
Bone Density Report Name: ZARA ROSAS Age: 80 Sex: Female Ethnicity: White Date of : 1945 Indication: postmenopausal; screening for osteoporosis; parental hip fracture; height loss; hysterectomy; Referring Provider: Art Georges Study: Bone densitometry was performed. Exam Date: July 23, 2025 Accession number: [id number] Bone Density: Region BMD T-score Z-score Classification AP Spine(L1, L2, L3) 1.141 1.1 3.7 Normal Femoral Neck (Left) 0.714 -1.2 1.1 Osteopenia Total Hip (Left) 0.913 -0.2 1.8 Normal Femoral Neck (Right) 0.732 -1.1 1.2 Osteopenia Total Hip (Right) 0.898 -0.4 1.7 Normal Femoral Neck Mean 0.723 -1.1 1.1 Osteopenia Total Hip Mean 0.906 -0.3 1.7 Normal World Health Organization criteria for BMD impression classify patients as: Normal (T-score at or above -1.0), Osteopenia (T-score between -1.0 and -2.5), or Osteoporosis (T-score at or below -2.5). 10-year Fracture Risk(1): Major Osteoporotic Fracture 20% Hip Fracture 9.9% Reported Risk Factors: [place] (), Neck BMD=0.714, BMI=30.6, parental fracture (1) FRAX(R) Version 3.08. Fracture probability calculated for an untreated patient. Fracture probability may be lower if the patient has received treatment. Clinical Information Provided by Patient: Parent has had a hip fracture Has used the following medications: Vitamin D Has the following medical conditions: Hysterectomy Patient maximum height was 64. Menopause Age: 51 No regular weight bearing exercise Onset of menses at age 15 Number of children 4 Impression: The patient has low bone mass, based on the Left Femoral Neck T-score. The patient has risk factors, including: parental hip fracture. Discussion: BONE DENSITY IS LOW AT ONE OR MORE SKELETAL SITES. This patient's lowest T-score is low at one or more skeletal sites. It meets the World Health Organization's (WHO) criteria for ?low bone mass? (T-score between -1.0 and -2.5). The patient's 10-year risk of fracture as calculated by FRAX is less than the threshold where pharmacological therapy is recommended by the National Osteoporosis Foundation (NOF). However, all treatment decisions require clinical judgment and consideration of individual patient factors, including patient preferences, comorbidities, previous drug use, risk factors not captured in the FRAX model (e.g., frailty, falls, vitamin D deficiency, increased bone turnover, interval significant decline in bone density) and possible under or overestimation of fracture risk by FRAX. The patient should follow a healthful lifestyle (good nutrition with adequate calcium and vitamin D, and appropriate weight-bearing exercise). Follow-Up: Consider repeating this study in 2 to 3 years to reassess this patient's status, or sooner if there is some new clinical indication. Reported by: JOHNNA on 07/23/2025 2:06:00 PM. Reviewed, dictated and finalized at location A.
--- NOTE | ~2025-07-23 | MR_ITS ---
EXAMINATION: MR thoracic spine wo con DATE: 07/23/2025 16:02 INDICATION: Thoracic radiculopathy. Right leg tingling. TECHNIQUE: Magnetic resonance imaging (MRI) of the thoracic spine was performed without intravenous contrast. COMPARISON: Thoracic spine radiographs 06/24/25 FINDINGS: Alignment is normal. There are Schmorl's nodes at T10-T11 and T11-T12. There is mildly decreased disc height at T11-T12. At T1-T2, there is a central protrusion with mild central canal stenosis. At T4-T5, there is a central protrusion with mild central canal stenosis. At T7-T8, there is a central extrusion with mild central canal stenosis. At T8-T9, there is a central extrusion with mild central canal stenosis. At T11-T12, the disc is bulging with superimposed central extrusion with mild central canal stenosis. At T12-L1, the disc is bulging with mild central canal stenosis. There is multilevel facet joint osteoarthritis, severe at multiple levels in the upper thoracic spine. There is mild neural foraminal stenosis at many levels on either side. The spinal cord signal intensity is normal. The conus medullaris is at L1-L2. IMPRESSION: 1. Mild thoracic spondylosis. Reviewed, dictated and finalized at location E. ECT ARTIST
== END 2025-07-23 13:43 | disposition home or self-care (01) ==
PROVIDERS: PCP Internal Medicine; Visit Provider Internal Medicine
DX: M54.14 Radiculopathy, thoracic region (principal); M81.0 Age-related osteoporosis without current pathological fracture; M85.89 Other specified disorders of bone density and structure, multiple sites; M43.04 Spondylolysis, thoracic region
CPT/HCPCS: 72146; 77080